=== PATIENT | female | born 1995 | race African-American/Black ===

== ENCOUNTER 2018-04-29 14:39 | Emergency (ER) | payer OTHER, SELFPAY ==
[2018-04-29] MEDS ORDERED: Bacitracin Zinc 1 Packet ONE (16:06)
[2018-04-29] MEDS ORDERED: Ibuprofen 200 MG TAB ONE (16:06)
== END 2018-04-29 16:07 | disposition home or self-care (01) ==
LOC: ERS 14:39
DX: S50.11XA Contusion of right forearm, initial encounter (principal); S90.812A Abrasion, left foot, initial encounter; I10 Essential (primary) hypertension; F32.9 Major depressive disorder, single episode, unspecified; Y04.1XXA Assault by human bite, initial encounter
CPT/HCPCS: 99283

== ENCOUNTER 2019-05-21 16:17 | Emergency (ER) | payer MEDICAID, SELFPAY ==
[2019-05-21 17:39] LABS: #Basophils 0.1 thou/uL (0.0-0.2); #Eosinphils 0.1 thou/uL (0.0-0.7); #Lymphocytes 2.9 thou/uL (1.20-3.40); #Monocytes 0.9 thou/uL (0.11-0.59); #Neutrophils 5.8 thou/uL (1.40-6.50); %Basophils 0.5 % (0.0-1.0); %Eosinophils 0.6 % (0.0-10.0); %Lymphocytes 29.9 % (21.0-51.0); %Monocytes 8.9 % (0.0-10.0); %Neutrophils 60.1 % (42.0-75.0); Hemoglobin 12.4 g/dL (12.0-16.0); Mean Corpuscular HGB CONC 33.4 g/dL (32.0-36.0); Mean Corpuscular Hemoglobin 29.5 pg (27.0-31.0); Mean Corpuscular Volume 88.4 fL (78.0-98.0); Mean Platelet Volume 7.7 fL (7.4-10.4); Platelet Count 273 thou/uL (130-400); RBC Distribution Width 12.1 % (11.5-14.5); Red Blood Cell (RBC) Count 4.21 mill/uL (4.20-5.40); White Blood Cell (WBC) Count 9.7 thou/uL (4.8-10.8)
[2019-05-21 18:00] LABS: BHCG - Serum POSITIVE (NEGATIVE); Pregs Control Background? CLEAR/WHITE (CLR/WHITE); Pregs Control Bar Appear? YES (CONTROL BAR)
[2019-05-21 18:01] LABS: ALT (SGPT) 12 U/L (8-55); AST (SGOT) 16 U/L (5-34); Albumin 4.3 g/dL (3.5-5.0); Alkaline Phosphatase 61 U/L (40-110); Anion Gap 10 mmol/L (10-20); BUN (Urea Nitrogen) 9 mg/dL (7.0-18.7); Bilirubin, Total 0.5 mg/dL (0.2-1.2); Calc. Creatinine Clearance 0 mL/min (70-130); Calcium 9.2 mg/dL (7.8-10.44); Carbon Dioxide 25 mmol/L (22-29); Chloride 105 mmol/L (98-107); Estimated GFR-MDRD Greater than 90; Globulin 2.9 g/dL (2.4-3.5); Glucose 90 mg/dL (70-105); Potassium 3.9 mmol/L (3.5-5.1); Protein, Total 7.2 g/dL (6.0-8.3); Sodium 136 mmol/L (136-145)
[2019-05-21] MEDS ORDERED: Metoclopramide HCl 10 MG/2 ML VIAL ONE (18:13)
== END 2019-05-21 19:44 | disposition left against medical advice (07) ==
LOC: ERS 16:17
DX: O21.9 Vomiting of pregnancy, unspecified (principal); O10.911 Unspecified pre-existing hypertension complicating pregnancy, first trimester; O99.341 Other mental disorders complicating pregnancy, first trimester; F32.9 Major depressive disorder, single episode, unspecified; Z3A.01 Less than 8 weeks gestation of pregnancy
CPT/HCPCS: 80053; 84702; 84703; 85025; 96361; 96365; J2765

== ENCOUNTER 2019-05-24 03:58 | Emergency (ER) | payer MEDICAID, SELFPAY ==
[2019-05-24] MEDS ORDERED: Ondansetron PF 4 MG/2 ML Vial ONE (04:14)
[2019-05-24 04:59] LABS: ALT (SGPT) 26 U/L (8-55); AST (SGOT) 23 U/L (5-34); Albumin 4.8 g/dL (3.5-5.0); Alkaline Phosphatase 76 U/L (40-110); Anion Gap 17 mmol/L (10-20); BUN (Urea Nitrogen) 9 mg/dL (7.0-18.7); Bilirubin, Total 1.1 mg/dL (0.2-1.2); Calc. Creatinine Clearance 0 mL/min (70-130); Calcium 10.2 mg/dL (7.8-10.44); Carbon Dioxide 25 mmol/L (22-29); Chloride 100 mmol/L (98-107); Estimated GFR-MDRD Greater than 90; Globulin 3.6 g/dL (2.4-3.5); Glucose 77 mg/dL (70-105); Lipase 18 U/L (8-78); Protein, Total 8.4 g/dL (6.0-8.3); Sodium 139 mmol/L (136-145)
== END 2019-05-24 06:08 | disposition home or self-care (01) ==
LOC: ERS 03:58
DX: O21.9 Vomiting of pregnancy, unspecified (principal); I10 Essential (primary) hypertension; F32.9 Major depressive disorder, single episode, unspecified; Z3A.01 Less than 8 weeks gestation of pregnancy
CPT/HCPCS: 80053; 83690; 96361; 96374; J2405

== ENCOUNTER 2019-05-25 10:36 | Emergency (ER) | payer MEDICAID, SELFPAY ==
[2019-05-25] MEDS ORDERED: Ondansetron PF 4 MG/2 ML Vial ONE (11:12)
[2019-05-25 11:47] LABS: #Basophils 0.1 thou/uL (0.0-0.2); #Lymphocytes 1.6 thou/uL (1.20-3.40); #Monocytes 0.7 thou/uL (0.11-0.59); #Neutrophils 8.8 thou/uL (1.40-6.50); %Basophils 0.5 % (0.0-1.0); %Eosinophils 0.4 % (0.0-10.0); %Lymphocytes 14.2 % (21.0-51.0); %Monocytes 5.9 % (0.0-10.0); %Neutrophils 79.1 % (42.0-75.0); Hemoglobin 14.1 g/dL (12.0-16.0); Mean Corpuscular HGB CONC 33.2 g/dL (32.0-36.0); Mean Corpuscular Hemoglobin 29.5 pg (27.0-31.0); Mean Corpuscular Volume 88.8 fL (78.0-98.0); Mean Platelet Volume 8.6 fL (7.4-10.4); Platelet Count 286 thou/uL (130-400); Red Blood Cell (RBC) Count 4.79 mill/uL (4.20-5.40); White Blood Cell (WBC) Count 11.1 thou/uL (4.8-10.8)
[2019-05-25 12:07] LABS: ALT (SGPT) 38 U/L (8-55); AST (SGOT) 28 U/L (5-34); Albumin 4.8 g/dL (3.5-5.0); Alkaline Phosphatase 76 U/L (40-110); Anion Gap 21 mmol/L (10-20); BUN (Urea Nitrogen) Less than 4 mg/dL (7.0-18.7); Bilirubin, Total 1.2 mg/dL (0.2-1.2); CK (CPK) 95 U/L (29-168); Calc. Creatinine Clearance 0 mL/min (70-130); Calcium 9.8 mg/dL (7.8-10.44); Carbon Dioxide 19 mmol/L (22-29); Chloride 102 mmol/L (98-107); Estimated GFR-MDRD Greater than 90; Globulin 3.5 g/dL (2.4-3.5); Glucose 67 mg/dL (70-105); Lipase 11 U/L (8-78); Protein, Total 8.3 g/dL (6.0-8.3); Sodium 139 mmol/L (136-145)
[2019-05-25 12:14] LABS: Potassium 2.9 mmol/L (3.5-5.1)
--- NOTE | 2019-05-25 13:37 | ULT ---
PELVIC ULTRASOUND: Transabdominal and endovaginal ultrasound of pelvis performed. INDICATION: Pelvic pain. Assess for ectopic. FINDINGS: There is a viable intrauterine gestation identified. A gestational sac is identified. a yolk sac an d pole are identified. heart activity is recorded at 117 b.p.m. [place]-rump length indic ates a 6-week 2-day gestational age. There is a hypoechoic subchorionic focus which is consistent with a small subchorionic hemorrhage. A small amount of free fluid in the right adnexa. Ovaries are identified and appear unremarkable. C olor Doppler and spectral analysis demonstrates blood flow to both ovaries. IMPRESSION: 1. Viable intrauterine . [place]-rump length indicates a 6-week 2-day gestational age. 2. Evidence of a small subchorionic hemorrhage. Followup recommended. POS: MARIELA
[2019-05-25] MEDS ORDERED: Potassium Chloride 20 MEQ TAB ONE (13:49)
== END 2019-05-25 14:15 | disposition home or self-care (01) ==
LOC: ERS 10:36
DX: O21.1 Hyperemesis gravidarum with metabolic disturbance (principal); O99.341 Other mental disorders complicating pregnancy, first trimester; F32.9 Major depressive disorder, single episode, unspecified; O10.911 Unspecified pre-existing hypertension complicating pregnancy, first trimester; Z3A.01 Less than 8 weeks gestation of pregnancy
CPT/HCPCS: 76856; 80053; 82550; 83690; 84702; 85025; 96361; 96374; J2405

== ENCOUNTER 2019-06-04 12:06 | Emergency (ER) | payer MEDICAID ==
[2019-06-04] MEDS ORDERED: Ondansetron PF 4 MG/2 ML Vial ONE (13:02)
[2019-06-04 13:17] LABS: #Basophils 0.1 thou/uL (0.0-0.2); #Lymphocytes 2.1 thou/uL (1.20-3.40); #Monocytes 0.7 thou/uL (0.11-0.59); #Neutrophils 7.3 thou/uL (1.40-6.50); %Basophils 0.8 % (0.0-1.0); %Eosinophils 0.4 % (0.0-10.0); %Lymphocytes 20.6 % (21.0-51.0); %Monocytes 7.2 % (0.0-10.0); Mean Corpuscular HGB CONC 33.2 g/dL (32.0-36.0); Mean Corpuscular Hemoglobin 29.1 pg (27.0-31.0); Mean Corpuscular Volume 87.8 fL (78.0-98.0); Mean Platelet Volume 7.8 fL (7.4-10.4); Platelet Count 315 thou/uL (130-400); RBC Distribution Width 12.2 % (11.5-14.5); Red Blood Cell (RBC) Count 4.82 mill/uL (4.20-5.40); White Blood Cell (WBC) Count 10.3 thou/uL (4.8-10.8)
[2019-06-04 13:37] LABS: ALT (SGPT) 17 U/L (8-55); AST (SGOT) 18 U/L (5-34); Albumin 4.3 g/dL (3.5-5.0); Alkaline Phosphatase 64 U/L (40-110); Anion Gap 14 mmol/L (10-20); BUN (Urea Nitrogen) 13 mg/dL (7.0-18.7); Bilirubin, Total 0.7 mg/dL (0.2-1.2); Calc. Creatinine Clearance 0 mL/min (70-130); Calcium 9.9 mg/dL (7.8-10.44); Carbon Dioxide 23 mmol/L (22-29); Chloride 102 mmol/L (98-107); Estimated GFR-MDRD Greater than 90; Globulin 3.6 g/dL (2.4-3.5); Glucose 71 mg/dL (70-105); Lipase 17 U/L (8-78); Potassium 3.9 mmol/L (3.5-5.1); Protein, Total 7.9 g/dL (6.0-8.3); Sodium 135 mmol/L (136-145)
== END 2019-06-04 14:10 | disposition home or self-care (01) ==
LOC: ERS 12:06
DX: O21.0 Mild hyperemesis gravidarum (principal); Z3A.01 Less than 8 weeks gestation of pregnancy
CPT/HCPCS: 80053; 83690; 85025; 96361; 96374; J2405

== ENCOUNTER 2019-06-07 11:05 | Observation (INO) | payer MEDICAID, OTHER ==
[2019-06-07] MEDS ORDERED: Ondansetron PF 4 MG/2 ML Vial ONE ×2 (12:23→12:26)
[2019-06-07 12:30] LABS: #Lymphocytes 1.4 thou/uL (1.20-3.40); #Monocytes 0.7 thou/uL (0.11-0.59); #Neutrophils 8.9 thou/uL (1.40-6.50); %Basophils 0.2 % (0.0-1.0); %Eosinophils 0.3 % (0.0-10.0); %Lymphocytes 12.9 % (21.0-51.0); %Monocytes 6.1 % (0.0-10.0); %Neutrophils 80.4 % (42.0-75.0); Hemoglobin 12.8 g/dL (12.0-16.0); Mean Corpuscular HGB CONC 33.9 g/dL (32.0-36.0); Mean Corpuscular Hemoglobin 29.9 pg (27.0-31.0); Mean Corpuscular Volume 88.2 fL (78.0-98.0); Mean Platelet Volume 7.5 fL (7.4-10.4); Platelet Count 315 thou/uL (130-400); RBC Distribution Width 11.9 % (11.5-14.5); Red Blood Cell (RBC) Count 4.27 mill/uL (4.20-5.40); White Blood Cell (WBC) Count 11.1 thou/uL (4.8-10.8)
[2019-06-07 13:36] LABS: ALT (SGPT) 22 U/L (8-55); AST (SGOT) 19 U/L (5-34); Albumin 3.7 g/dL (3.5-5.0); Alkaline Phosphatase 55 U/L (40-110); Anion Gap 12 mmol/L (10-20); BUN (Urea Nitrogen) 9 mg/dL (7.0-18.7); Bilirubin, Total 0.6 mg/dL (0.2-1.2); Calc. Creatinine Clearance 0 mL/min (70-130); Calcium 8.6 mg/dL (7.8-10.44); Carbon Dioxide 22 mmol/L (22-29); Chloride 106 mmol/L (98-107); Estimated GFR-MDRD Greater than 90; Globulin 2.8 g/dL (2.4-3.5); Glucose 72 mg/dL (70-105); Protein, Total 6.5 g/dL (6.0-8.3); Sodium 136 mmol/L (136-145)
[2019-06-07] MEDS ORDERED: Magnesium Citrate 300 ML BOT PO SCH (15:30)
[2019-06-07] MEDS ORDERED: Lactated Ringer's 1,000 ML IV SCH (15:30)
[2019-06-07] MEDS ORDERED: Sodium Chloride 0.9% 10 ML ONE (15:55)
--- NOTE | 2019-06-07 17:35 | HP ---
PRIMARY MERCERIZER MACHINE OPERATOR: Shaheed Cope MD CHIEF COMPLAINT: Nausea and vomiting. HISTORY OF PRESENT ILLNESS: The patient is a 23-year-old with an intrauterine at approximately 7 weeks' gestation, who has been having persistent nausea and vomiting for the last several weeks. She has had four ER presentations in the last 2 weeks for uncontrolled nausea and vomiting. The patient has been seen by her primary OB, Dr. Cope, who has prescribed her at least two different antiemetics, most recently Zofran. The patient reports that the Zofran is able to help her some with the nausea, but she is unable to keep any liquids down. The patient also reports that she has been having constipation with the last bowel movement about a week ago. The patient denies fever. She denies fall. She denies headache, chest pain, shortness of breath, diarrhea, any hip problems, knee problems, muscle weakness, any new rashes, any bleeding, leaking fluid, urinary urgency or frequency. PAST MEDICAL HISTORY: Negative. PAST SURGICAL HISTORY: She has had 2 prior C-sections. OBSTETRIC HISTORY: She has had one delivery at 26 to 29 weeks' gestation, delivered by for breech. SOCIAL HISTORY: Denies drug, alcohol, or tobacco use. ALLERGIES: NO KNOWN DRUG ALLERGIES. MEDICATIONS: Zofran. PHYSICAL EXAMINATION: VITAL SIGNS: Blood pressure 137/83, pulse of 106, respiratory rate 19, temperature 99.3, saturating 97% on room air. GENERAL: She appears to be in no acute distress. She is alert, oriented, cooperative, and pleasant to interact with. HEENT: Head is normocephalic and atraumatic. LUNGS: Clear to auscultation bilaterally. HEART: Regular rate and rhythm. ABDOMEN: Soft and nontender. EXTREMITIES: Nontender and nonedematous. LABORATORY DATA: CBC; white count is 11.1, hemoglobin 12.8, hematocrit 37.6, platelets of 315,000. Sodium 136, potassium 4.0, chloride 106, BUN 9, creatinine 0.6. AST of 19, ALT of 22. ASSESSMENT AND PLAN: The patient is a 23-year-old female with an intrauterine at approximately 7 weeks with uncontrolled nausea and vomiting. I have placed her on scheduled Zofran 8 mg IV twice a day, on 12.5 mg of Benadryl every 4 hours, and vitamin B6 25 mg 3 times a day. I have also ordered magnesium citrate when tolerated and MiraLAX. The patient has a desire to eat, so we will be giving her a trial of diet. Once the patient is able to tolerate intake on IV antiemetics, we will switch to p.o. and if tolerating that, she will go home on that schedule. Job ID: [id number]
[2019-06-07] MEDS: diphenhydrAMINE 50 MG/ML VIAL IVP SCH ×2 (18:04→20:47)
[2019-06-07 18:36] VITALS: BMI 24.0
[2019-06-07] MEDS: Lactated Ringer's 1,000 ML IV SCH (20:44)
[2019-06-07] MEDS: pyridOXINE 50 MG (B6) TAB PO SCH (20:44)
[2019-06-07] MEDS ORDERED: Ondansetron HCl/PF 8 MG in Sodium Chloride 0.9% 50 ML IVPB SCH (21:00)
[2019-06-08] MEDS: Lactated Ringer's 1,000 ML IV SCH ×3 (03:53→12:46)
[2019-06-08] MEDS: diphenhydrAMINE 50 MG/ML VIAL IVP SCH ×2 (03:53→05:48)
[2019-06-08] MEDS ORDERED: Ondansetron ODT 8 MG TAB SL PRN (07:50)
[2019-06-08] MEDS ORDERED: Metoclopramide HCl 10 MG TAB PO SCH (08:00)
[2019-06-08] MEDS: pyridOXINE 50 MG (B6) TAB PO SCH ×2 (08:21→15:30)
--- NOTE | 2019-06-08 08:21 | PRG ---
DATE OF SERVICE: 06/08/2019 SUBJECTIVE: The patient is a 23-year-old female with an intrauterine at approximately 7 weeks' gestation, who was admitted for unrelenting nausea and vomiting in . The patient has been on scheduled antiemetics for the last approximately 24 hours and is doing well. She has been on scheduled Zofran, Benadryl, and vitamin B6. She has been able to eat and has not had any episodes of nausea or vomiting. She also had constipation for a week, has now been resolved with magnesium citrate and is now on MiraLAX daily. OBJECTIVE: VITAL SIGNS: This morning, blood pressure 110/63, temperature 98.1, pulse of 97, and respiratory rate of 16. GENERAL: She appears to be in no acute distress. She is alert, oriented, cooperative, and pleasant to interact with. ASSESSMENT AND PLAN: This is hospital day #2 for nausea and vomiting in . We are switching all of her medications to oral. The patient has had extreme sedation with the IV Benadryl. I will be switching her to Zofran 8 mg twice a day. Scheduled Reglan 10 mg 3 times a day before meals and vitamin B6. If she tolerates her diet well today with oral antiemetics, we will consider discharge this evening. Job ID: [id number]
[2019-06-08] MEDS ORDERED: FLU VACC QS2019-20(6MOS UP)/PF 60 MCG/0.5 ML SYRINGE IM ONE (09:00)
[2019-06-08] MEDS ORDERED: Polyethylene Glycol 3350 17 GM Packet PO SCH (09:00)
[2019-06-08] MEDS ORDERED: Ondansetron ODT 8 MG TAB SL SCH (09:00)
[2019-06-08] MEDS: Metoclopramide HCl 10 MG TAB PO SCH ×2 (11:56→17:08)
[2019-06-08 12:07] VITALS: BP 118/68; TEMP 97.8
--- NOTE | 2019-06-08 15:46 | PDOC.BPN ---
<Yamile Alcocer - Last Filed: 06/08/19 15:45> - Brief Progress Note Pt reports N/V has resolved with PO medications. She is tolerating PO and ate a full lunch. She reports she overall feels better and is ready to go home. Will d/c home today. Encouraged pt to keep appt with Dr. Cope on 06/12. Continue antiemetics at home and gave miralax prn constipation. <Rex Rodriguez - Last Filed: 06/08/19 15:50> - Brief Progress Note Faculty note: Agree. Review of past admists from 05/2019 showed pos VIABLE IUP first trimester
--- NOTE | 2019-06-08 15:46 | PDOC.EVN ---
Event Note - Event Note Event Note: OBGYN Faculty Discharge Note S/P IVF hydration. @1545 DX Final: resolved N/V of in first trimester Admit was: 06/07/19 [facility] Date: 06/08/19 Principal DX: N/V in first trimester Procedure: IVF hydration Hospital course: Patient feels better on orals. Kinza po today OK fort DC to home with Irena, f/u with Dr Cope. Agree with Dr Alcocer, follow up in one week OK for oral meds as outpatient
--- NOTE | 2019-06-08 16:35 | DIS ---
DATE OF ADMISSION: 06/07/2019 DATE OF DISCHARGE: 06/08/2019 PRINCIPAL DIAGNOSES: 1. Nausea and vomiting at 7 weeks. 2. History of previous section. PRINCIPLE PROCEDURE: IV fluid hydration. HOSPITAL COURSE: In brief, the patient was admitted by the on-call team yesterday, Dr. Owen, for nausea and vomiting. She was able to tolerate regular diet on an oral regimen, and on the afternoon of evaluation on June 08, 2019, she had no further nausea and vomiting. It is important to note that she had an ultrasound performed last month that did confirm an intrauterine gestation in the first trimester with adequate heart tones. The decision was made to send the patient home at approximately 1600 hours today on June 08, 2019, and she will follow up with Dr. Cope, who is her provider, in about 1 week. She will go home with oral antiemetics (Zofran). She also had some initial constipation on arrival, but this resolved after a laxative was administered and the patient felt better. Job ID: [id number] MTDD
== END 2019-06-08 17:19 | disposition home or self-care (01) ==
LOC: ERS 11:05 → 3SE 15:04
PROVIDERS: ADMIT Obstetrics & Gynecology; ATTEND Obstetrics & Gynecology
DX: O21.9 Vomiting of pregnancy, unspecified (principal); O99.611 Diseases of the digestive system complicating pregnancy, first trimester; K59.00 Constipation, unspecified; Z3A.01 Less than 8 weeks gestation of pregnancy
CPT/HCPCS: 36415; 80053; 85025; 96361; 96365; 96374; 96375; 96376; G0378; J1200; J2405

== ENCOUNTER 2019-07-05 17:11 | Emergency (ER) | payer MEDICAID, OTHER ==
[2019-07-05 17:40] LABS: Bacteria/HPF None Seen HPF (None Seen); Bilirubin Negative (Negative); Blood, Urine Negative (Negative); Clarity Clear (Clear); Glucose, Urine (Dipstick) Normal (Negative); Leukocyte 500 Leu/uL (Negative); Nitrite Negative (Negative); Protein, Urine (Dipstick) 20 mg/dL (Neg-Trace); RBC/HPF 0-3 HPF (0-3); Urobilinogen 3 mg/dL (Less than 2); WBC/HPF 0-3 HPF (0-3)
[2019-07-05 17:49] LABS: #Basophils 0.1 thou/uL (0.0-0.2); #Eosinphils 0.1 thou/uL (0.0-0.7); #Lymphocytes 2.5 thou/uL (1.20-3.40); #Monocytes 0.8 thou/uL (0.11-0.59); #Neutrophils 6.2 thou/uL (1.40-6.50); %Basophils 0.6 % (0.0-1.0); %Eosinophils 0.7 % (0.0-10.0); %Lymphocytes 25.7 % (21.0-51.0); %Monocytes 8.4 % (0.0-10.0); %Neutrophils 64.6 % (42.0-75.0); Mean Corpuscular HGB CONC 32.8 g/dL (32.0-36.0); Mean Corpuscular Hemoglobin 29.3 pg (27.0-31.0); Mean Corpuscular Volume 89.1 fL (78.0-98.0); Mean Platelet Volume 7.3 fL (7.4-10.4); Platelet Count 305 thou/uL (130-400); RBC Distribution Width 12.4 % (11.5-14.5); Red Blood Cell (RBC) Count 3.75 mill/uL (4.20-5.40); White Blood Cell (WBC) Count 9.7 thou/uL (4.8-10.8)
[2019-07-05 18:11] LABS: ALT (SGPT) 18 U/L (8-55); AST (SGOT) 16 U/L (5-34); Albumin 3.7 g/dL (3.5-5.0); Alkaline Phosphatase 50 U/L (40-110); Anion Gap 8 mmol/L (10-20); BUN (Urea Nitrogen) 10 mg/dL (7.0-18.7); Bilirubin, Total 0.3 mg/dL (0.2-1.2); Calc. Creatinine Clearance 0 mL/min (70-130); Calcium 9.1 mg/dL (7.8-10.44); Carbon Dioxide 26 mmol/L (22-29); Chloride 107 mmol/L (98-107); Estimated GFR-MDRD Greater than 90; Globulin 2.9 g/dL (2.4-3.5); Glucose 92 mg/dL (70-105); Potassium 3.5 mmol/L (3.5-5.1); Protein, Total 6.6 g/dL (6.0-8.3); Sodium 137 mmol/L (136-145)
[2019-07-05] MEDS ORDERED: Acetaminophen 500 MG TAB ONE (18:12)
[2019-07-05 18:18] LABS: BHCG - Serum POSITIVE (NEGATIVE); Pregs Control Background? CLEAR/WHITE (CLR/WHITE); Pregs Control Bar Appear? YES (CONTROL BAR)
--- NOTE | 2019-07-05 19:11 | ULT ---
Ultrasound early obstetrical: DATE: 07/05/2019 HISTORY: 23-year-old female status post fall. "Reason for exam: Placenta dates" FINDINGS: Intrauterine gestational sac containing pole. The gestational sac is positioned in the uterine body near the cervix rather than at the fundus. [place]-rump length: 5.6 cm: 12 W1 D. heart rate: 157 BPM. Placenta appears to be posterior. Posterior to the placenta at the uterine fundus, there is a broad region of the uterus with increased blood flow. Etiology and significance of this is uncertain. No free fluid in the cul-de-sac. Bilateral ovaries are normal. IMPRESSION: 1. Live very early second trimester intrauterine gestation estimated to be 12 weeks 1 day gestational age. 2. A moderately large region of hyperemia in the uterine fundus. It may be displacing the gestational sac inferiorly towards the cervix. Etiology is uncertain. Possibilities include Isaac Galloway contraction, placenta accreta, and less likely placental abruption. 3. Recommend follow-up.
[2019-07-05] MEDS ORDERED: Promethazine 25 MG TAB ONE (21:01)
== END 2019-07-05 20:30 | disposition home or self-care (01) ==
LOC: ERS 17:11
DX: O20.8 Other hemorrhage in early pregnancy (principal); Z3A.13 13 weeks gestation of pregnancy
CPT/HCPCS: 36415; 76856; 80053; 81003; 81015; 84703; 85025; 86900; 86901; 93976; Q0169

== ENCOUNTER 2019-08-02 17:51 | Emergency (ER) | payer OTHER ==
[2019-08-02 18:13] LABS: #Eosinphils 0.1 thou/uL (0.0-0.7); #Lymphocytes 0.6 thou/uL (1.20-3.40); #Monocytes 0.4 thou/uL (0.11-0.59); #Neutrophils 11.6 thou/uL (1.40-6.50); %Basophils 0.1 % (0.0-1.0); %Eosinophils 0.7 % (0.0-10.0); %Lymphocytes 4.4 % (21.0-51.0); %Monocytes 3.2 % (0.0-10.0); %Neutrophils 91.6 % (42.0-75.0); Hemoglobin 12.2 g/dL (12.0-16.0); Mean Corpuscular HGB CONC 33.5 g/dL (32.0-36.0); Mean Corpuscular Hemoglobin 29.3 pg (27.0-31.0); Mean Corpuscular Volume 87.7 fL (78.0-98.0); Mean Platelet Volume 7.2 fL (7.4-10.4); Platelet Count 289 thou/uL (130-400); RBC Distribution Width 12.3 % (11.5-14.5); Red Blood Cell (RBC) Count 4.17 mill/uL (4.20-5.40); White Blood Cell (WBC) Count 12.6 thou/uL (4.8-10.8)
[2019-08-02 18:37] LABS: ALT (SGPT) 15 U/L (8-55); AST (SGOT) 15 U/L (5-34); Albumin 3.8 g/dL (3.5-5.0); Alkaline Phosphatase 74 U/L (40-110); Anion Gap 14 mmol/L (10-20); BUN (Urea Nitrogen) 9 mg/dL (7.0-18.7); Bilirubin, Total 0.5 mg/dL (0.2-1.2); Calc. Creatinine Clearance 0 mL/min (70-130); Carbon Dioxide 21 mmol/L (22-29); Chloride 104 mmol/L (98-107); Estimated GFR-MDRD Greater than 90; Globulin 3.5 g/dL (2.4-3.5); Glucose 74 mg/dL (70-105); Potassium 3.6 mmol/L (3.5-5.1); Protein, Total 7.3 g/dL (6.0-8.3); Sodium 135 mmol/L (136-145)
[2019-08-02] MEDS ORDERED: Ondansetron PF 4 MG/2 ML Vial ONE ×2 (18:48→19:42)
[2019-08-02] MEDS ORDERED: Acetaminophen 500 MG TAB ONE (18:48)
--- NOTE | 2019-08-02 19:13 | ULT ---
Obstetrical ultrasound: 08/02/2019 COMPARISON: 07/05/2019 HISTORY: Abdominal pain, question contractions TECHNIQUE: Multiplanar grayscale sonographic imaging of the gravid uterus obtained. FINDINGS: Cervical length is approximately 3.1 cm. Single intrauterine gestation present demonstrating a heart rate of 1 52 bpm. There is a focal area of thickening of the placenta and posterior to the placenta there is an area of masslike increased vascularity which is unchanged when compared to the prior examination. This causes a abnormal persistent convex margin of the placenta. Significance is uncertain. No evidence fo r a retroplacental hematoma. No evidence for placental previa or abruption. anatomy is not assessed on this examination. position is breech. Amniotic fluid volume is qualitatively normal. biometry: Biparietal diameter 3.2 cm 15 weeks 6 days Head circumference 12.4 cm 16 weeks 2 days Abdominal circumference 10.6 cm 16 weeks 3 days Femur length 2.1 cm 16 weeks 1 day Average age based on ultrasound is 16 weeks 1 day. Estimated date of delivery is 01/16/2020 Estimated weight is 152 g +/- 22 g. IMPRESSION: Single live intrauterine gestation as detailed above. Incidental note is made of a focal area of placental thickening with retroplacental increased blood flow and increased echogenicity. Significance is uncertain. This is a stable finding. This will be better assessed on routine anatomic survey recommended in approximately 8 weeks.
[2019-08-02 19:15] LABS: Bacteria/HPF None Seen HPF (None Seen); Bilirubin Negative (Negative); Blood, Urine Negative (Negative); Clarity Clear (Clear); Glucose, Urine (Dipstick) Normal (Negative); Leukocyte 25 Leu/uL (Negative); Mucous/LPF Rare LPF (<2+); Nitrite Negative (Negative); Protein, Urine (Dipstick) 20 mg/dL (Neg-Trace); WBC/HPF 0-3 HPF (0-3)
== END 2019-08-02 21:58 | disposition home or self-care (01) ==
LOC: ERS 17:51
DX: O21.9 Vomiting of pregnancy, unspecified (principal); O99.282 Endocrine, nutritional and metabolic diseases complicating pregnancy, second trimester; E86.0 Dehydration; Z3A.16 16 weeks gestation of pregnancy
CPT/HCPCS: 36415; 76815; 80053; 81003; 81015; 84702; 85025; 96374; 96376; J2405

== ENCOUNTER 2019-09-05 14:38 | Outpatient (CLI) | payer OTHER ==
--- NOTE | 2019-09-05 16:37 | ULT ---
COMPLETE OB ULTRASOUND: 09/05/19 HISTORY: Anatomy. COMPARISON: 08/02/19. FINDINGS: Single viable intrauterine fetus in variable presentation. The placenta is posterior. heart rat e 146 beats per minute. Posterior low lying placenta without overt placenta previa. Amniotic fluid is within normal limits. Cervix region is somewhat poorly defined. ANATOMY: Visualized brain, four chamber heart, three vessel cord, stomach, bladder, kidneys, spine and e xtremity regions are unremarkable. BIOMETRY: BPD 4.9 cm - - 20 weeks, 5 days Head circumference 18.0 cm - - 20 weeks, 4 days Abdominal circumference 15.6 cm - - 20 weeks, 6 days Femur length 3.5 cm - - 21 weeks, 0 days IMPRESSION: Single viable intrauterine fetus, 20 weeks, 6 days. JUAN FRANCISCO 01/13/2020. Estimated weight 358 grams. POS: MARIELA
== END 2019-09-05 14:39 | disposition home or self-care (01) ==
LOC: BICULT 14:38
PROVIDERS: ATTEND Family Medicine
DX: O09.212 Supervision of pregnancy with history of pre-term labor, second trimester (principal); Z3A.20 20 weeks gestation of pregnancy
CPT/HCPCS: 76805

== ENCOUNTER 2019-10-02 06:18 | Day surgery (SDC) | payer OTHER ==
[2019-10-02 07:17] VITALS: BP 127/70; TEMP 98.4; BMI 31.4
[2019-10-02] MEDS ORDERED: hydrALAZINE 20 MG/ML VIAL SLOW IVP PRN (07:38)
[2019-10-02] MEDS ORDERED: Lactated Ringer's 1,000 ML IV SCH ×2 (07:45)
[2019-10-02] MEDS ORDERED: Promethazine HCl 25 MG/ML VIAL IM PRN (07:47)
--- NOTE | 2019-10-02 08:26 | PRG ---
DATE OF SERVICE: 10/02/2019 PRIMARY OBSTETRICS DOCTOR: Dr. Shaheed Cope. CHIEF COMPLAINT: Nausea, vomiting x2 days and sharp abdominal pains. HISTORY OF PRESENT ILLNESS: The patient is a 23-year-old G3, P2 female with an intrauterine at 25 weeks and 2 days, presenting to Labor and Delivery with chronic nausea and vomiting with this that has been refractory to Zofran in the last couple of days. She says she has not been able to keep any liquids down. The last time she peed was yesterday evening. The patient also reports that she has been having some sharp lower abdominal pains that are worse with activity and movement and much improved with rest. She denies any rhythmic abdominal pains with hardening of the belly. She denies any recent illness, fever, cough. The patient does report intermittent headaches throughout the . Denies any current headaches. Denies chest pain, shortness of breath. Reports intermittent constipation. Denies diarrhea. Denies any new rashes, hip problems, knee problems, muscle weakness. Reports some vaginal discharge that she has been noticing when she goes to the bathroom with an odor. Denies any leakage of fluid or vaginal bleeding. Denies any urinary urgency or frequency. PAST MEDICAL HISTORY: Negative. PAST SURGICAL HISTORY: Two prior C-sections. ALLERGIES: NO KNOWN DRUG ALLERGIES. MEDICATIONS: vitamins and Zofran. SOCIAL HISTORY: Denies drug, alcohol, or tobacco use. OBSTETRICS LABS: Unavailable at time of dictation. REVIEW OF SYSTEMS: Per HPI. PHYSICAL EXAMINATION: VITAL SIGNS: Blood pressure 127/70, heart rate 76, respiratory rate 18. GENERAL: She appears to be in no acute distress. She is alert and oriented, cooperative, pleasant to interact with. HEAD: Normocephalic, atraumatic. LUNGS: Clear to auscultation bilaterally. HEART: Has regular rate and rhythm. ABDOMEN: Gravid, soft, nontender in her epigastric and upper abdominal region and her fundus. She does have tenderness in the lower pelvis with deviation of the uterus to the left and right consistent with the pains that she has come in with. EXTREMITIES: Nontender, nonedematous. : Vulva is without mass, lesions, or erythema. Vagina is moist with a significant amount of white discharge, more so than expected for physiologic changes. The cervix is visibly closed. fibronectin and VP3 have both been collected at that time. Cervix on digital exam is closed, thick, and high with no presenting palpable part. DIAGNOSTIC DATA: heart tracing shows the fetus with a baseline in the 140s with moderate long-term variability, appropriate for 25 week gestation. Tocometer not showing any contraction pattern. LABORATORY DATA: BMP has been ordered as well as VP3 and fibronectin all pending. ASSESSMENT AND PLAN: The patient is a 23-year-old female with a chronic history of nausea and vomiting refractory to Zofran in the last couple of days. She is getting IV with IV fluid resuscitation, BMP to check electrolytes and these abdominal pains are consistent with musculoskeletal pains of . She has no evidence of labor. However, we have fibronectin. This has been sent and is pending. Dr. Rodriguez oncoming physician. She is to continue with management. DISPOSITION: The patient has fetus with reassuring heart tracing for gestational age. Also urinalysis when she is able to urinate will be sent. Job ID: [id number] MTDD
[2019-10-02 08:29] LABS: Anion Gap 12 mmol/L (10-20); BUN (Urea Nitrogen) 9 mg/dL (7.0-18.7); Calc. Creatinine Clearance 155 mL/min (70-130); Calcium 8.7 mg/dL (7.8-10.44); Carbon Dioxide 22 mmol/L (22-29); Chloride 107 mmol/L (98-107); Estimated GFR-MDRD Greater than 90; Glucose 82 mg/dL (70-105); Potassium 3.6 mmol/L (3.5-5.1); Sodium 137 mmol/L (136-145)
[2019-10-02 08:31] LABS: FFN Internal QC Analyzer PASS (PASS); FFN Internal QC Cassette PASS (PASS); Fetal Fibronectin Negative (Negative)
--- NOTE | 2019-10-02 08:34 | PDOC.EVN ---
Event Note - Event Note Event Note: At bedside now with Davian Wu (M3). Plan reviewed. Labs pending. I changed the BMP to CMP. No acute distress.
--- NOTE | 2019-10-02 08:49 | PDOC.EVN ---
Event Note - Event Note Event Note: Lab check: So far, BMP and FFN are negative
--- NOTE | 2019-10-02 09:15 | PDOC.EVN ---
Event Note - Event Note Event Note: BV and yeast on VP3 LFTs and UA pending I have ordered flagyl 500mg po BID x 7 days in the pharmacy for her. As no itching c/o, will not RX yeast at this time.
[2019-10-02 09:21] LABS: ALT (SGPT) 20 U/L (8-55); AST (SGOT) 18 U/L (5-34); Albumin 3.4 g/dL (3.5-5.0); Alkaline Phosphatase 70 U/L (40-110); Bilirubin, Direct 0.1 mg/dL (0.1-0.3); Bilirubin, Total 0.2 mg/dL (0.2-1.2); Protein, Total 6.6 g/dL (6.0-8.3)
[2019-10-02 09:39] LABS: Bacteria/HPF None Seen HPF (None Seen); Bilirubin Negative (Negative); Blood, Urine Negative (Negative); Clarity Clear (Clear); Glucose, Urine (Dipstick) Normal (Negative); Leukocyte Negative Leu/uL (Negative); Nitrite Negative (Negative); Protein, Urine (Dipstick) Negative (Neg-Trace); RBC/HPF 0-3 HPF (0-3); Squamous Epithelial 0-3 HPF (0-3); Urobilinogen Normal mg/dL (Less than 2); WBC/HPF 0-3 HPF (0-3)
--- NOTE | 2019-10-02 09:54 | PDOC.EVN ---
Event Note - Event Note Event Note: All labs checked and OK. OK for outpatient care. Flagyl for BV
== END 2019-10-02 09:55 | disposition home or self-care (01) ==
LOC: L&D/OP 06:18
PROVIDERS: ATTEND Family Medicine
DX: O99.89 Other specified diseases and conditions complicating pregnancy, childbirth and the puerperium (principal); R10.30 Lower abdominal pain, unspecified; O21.2 Late vomiting of pregnancy; O34.219 Maternal care for unspecified type scar from previous cesarean delivery; O98.812 Other maternal infectious and parasitic diseases complicating pregnancy, second trimester; B37.3 Candidiasis of vulva and vagina; O23.592 Infection of other part of genital tract in pregnancy, second trimester; B96.89 Other specified bacterial agents as the cause of diseases classified elsewhere; Z3A.25 25 weeks gestation of pregnancy; Z79.899 Other long term (current) drug therapy
CPT/HCPCS: 36415; 80048; 80076; 81001; 82731; 87480; 87510; 87660; 96360; 96361; 96372; 99285; J2550

== ENCOUNTER 2019-10-09 12:29 | Emergency (ER) | payer OTHER | END 2019-10-09 12:42 | disposition left against medical advice (07) | LOC: ERS 12:29 | DX: Z53.21 Procedure and treatment not carried out due to patient leaving prior to being seen by health care provider (principal) ==

== ENCOUNTER 2019-10-17 10:55 | Outpatient (CLI) | payer OTHER ==
--- NOTE | 2019-10-17 11:35 | ULT ---
ULTRASOUND OBSTETRICAL COMPLETE: DATE: 10/17/2019 HISTORY: 24-year-old female ICD-10: "O09.93, high-risk , third trimester" Follow-up low lying placenta FINDINGS: number: silver lie: Vertex Maternal cervix: 4.5 cm. Closed. Placenta: Posterior. No placenta previa. Distance to internal os at least 6.5 cm. Amniotic fluid volume: ASIA = 15cm heart rate: 146 bpm The following anatomy is visualized, with no evidence of anomalies: Head, four-chamber heart, cord insertion, and three-vessel cord. The rest of the anatomy was not evaluated today. biometry: Biparietal diameter (BPD): 6.5 cm 26 w 3 d Head circumference (HC): 24.4 cm 26 w 4 d Abdominal circumference (AC): 21.9 cm 26 w 3 d Femur length (FL): 4.9 cm 26 w 3 d Average ultrasound age (AUA): 26 w 3 d Estimated date of delivery (JUAN FRANCISCO): 01/20/2020 Estimated weight (EFW): 931 g +/- 136 g IMPRESSION: 1) Live 3rd trimester intrauterine gestation. 2) Estimated gestational age of 26 weeks, 3 days 3) cephalic lie. 4) no placenta previa
== END 2019-10-17 10:56 | disposition home or self-care (01) ==
LOC: BICULT 10:55
PROVIDERS: ATTEND Family Medicine
DX: O09.92 Supervision of high risk pregnancy, unspecified, second trimester (principal); Z3A.26 26 weeks gestation of pregnancy
CPT/HCPCS: 76815

== ENCOUNTER 2019-11-08 05:49 | Day surgery (SDC) | payer OTHER ==
[2019-11-08] MEDS ORDERED: hydrALAZINE 20 MG/ML VIAL SLOW IVP PRN (06:47)
[2019-11-08] MEDS ORDERED: Promethazine HCl 25 MG/ML VIAL IM/IV PRN (06:49)
[2019-11-08] MEDS: Lactated Ringer's 1,000 ML IV SCH ×2 (07:00→07:39)
--- NOTE | 2019-11-08 07:14 | HP ---
TIME OF EVALUATION: 0650 hours. LOCATION: Labor and Delivery Triage in bed A. This is a patient of Dr. Cope. CHIEF COMPLAINT: Vomiting for about 2 days. HISTORY OF PRESENT ILLNESS: This is a 24-year-old, G3, P2 with an EDC of 01/13/2020 with an EGA currently of 30 weeks and 4 days with a complaint of possible contractions and nausea and vomiting for 2 days. She was seen in September in Labor and Delivery for similar complaints. She states that she has good movement and denies fever, cough, or leakage of fluid. She has no vaginal bleeding. She has not had recent intercourse in 48 hours. REVIEW OF SYSTEMS: Complete review of systems was checked and is otherwise negative unless specified in the HPI. OB HISTORY: Significant for 2 previous C-sections. Her 1st delivery was at 27 weeks and the 2nd was at term by repeat . ALLERGIES: NONE. MEDICATIONS: Include Zofran at home and vitamins. SOCIAL HISTORY: Noncontributory, per patient report. PHYSICAL EXAMINATION: GENERAL: She is in no acute distress. VITAL SIGNS: Show a blood pressure of 128/77, pulse of 87, temperature of 98.7, respirations are 16 and unlabored. ABDOMEN: Soft and nontender. There is no gross evidence of vaginal bleeding or gross evidence of leakage of fluid. CERVICAL: Deferred in case an FFN is required. assessment, heart tones are reactive for gestational age without pathological decelerations. There are contractions that are low amplitude on tocodynamometer in about every 5 minutes or so. ASSESSMENT: This is a 24-year-old, G3, P2, at 30 weeks and 4 days with nausea and vomiting for 2 days. She has complaint of contractions. PLAN: 1. I have ordered a stat cervical length ultrasound to assess for risk for . 2. I have ordered 1 L LR now. 3. I have ordered complete metabolic profile. 4. I have ordered 25 mg of Phenergan, slow IV push. 5. I have also ordered a right upper quadrant ultrasound. Job ID: [id number]
[2019-11-08 07:28] LABS: ALT (SGPT) 52 U/L (8-55); AST (SGOT) 32 U/L (5-34); Albumin 3.2 g/dL (3.5-5.0); Alkaline Phosphatase 107 U/L (40-110); Anion Gap 13 mmol/L (10-20); BUN (Urea Nitrogen) 5 mg/dL (7.0-18.7); Bilirubin, Total 0.4 mg/dL (0.2-1.2); Calc. Creatinine Clearance 0 mL/min (70-130); Calcium 8.7 mg/dL (7.8-10.44); Carbon Dioxide 22 mmol/L (22-29); Chloride 107 mmol/L (98-107); Estimated GFR-MDRD Greater than 90; Globulin 3.5 g/dL (2.4-3.5); Glucose 80 mg/dL (70-105); Potassium 3.6 mmol/L (3.5-5.1); Protein, Total 6.7 g/dL (6.0-8.3); Sodium 138 mmol/L (136-145)
--- NOTE | 2019-11-08 07:47 | PDOC.EVN ---
Event Note - Event Note Event Note: sONO cx LENGTH AT 4.2CM sMALL gb STONE NOTED WITHOUT BLOAKAGE
--- NOTE | 2019-11-08 07:48 | PDOC.EVN ---
Event Note - Event Note Event Note: LABS ARE WNL RUQ SONO WITH SMALL STONE; NORMAL CX LENGTH OK FOR OUTPATIENT CARE LOW FAT DIET
--- NOTE | 2019-11-08 07:50 | PDOC.EVN ---
Event Note - Event Note Event Note: HISTORY ADDENDUM PATIENT HAS PTALYSIM...DOENT SWALLOW HER SALIVA SHE STATES IT MAKES HER NASUEATED. I DISCUSSED THE CONDITION WITH HER. DENIES MARIJUANA USE NOW ALTHOUGH SHE DOES HAVE A PAST HX OF USE
[2019-11-08 07:55] VITALS: BMI 28.3
[2019-11-08] MEDS ORDERED: Lactated Ringer's 1,000 ML IV SCH (08:00)
--- NOTE | 2019-11-08 08:22 | ULT ---
Sonogram right upper quadrant HISTORY: Right upper quadrant pain. FINDINGS: Large echogenic stone is present within the dependent portion of the gallbladder lumen. Pat ient was reportedly tender over the gallbladder fossa at the time of the exam. There is no gallbladder wall thickening or pericholecystic fluid. Common duct is 0.2 cm. Liver unremarkable without focal mass or intrahepatic biliary dilatation. No free fluid. IMPRESSION : Cholelithiasis. Positive sonographic Ty sign is suggestive of acute cholecystitis. No other abnor mal findings evident.
--- NOTE | 2019-11-08 08:56 | ULT ---
Obstetric sonogram limited HISTORY: Evaluate cervical length. FINDINGS: Transabdominal exam well demonstrates the uterine cervix. It is closed and 4.2 cm.
== END 2019-11-08 08:30 | disposition home health service (06) ==
LOC: L&D/OP 05:49
PROVIDERS: ATTEND Family Medicine
DX: O21.2 Late vomiting of pregnancy (principal); O34.219 Maternal care for unspecified type scar from previous cesarean delivery; Z3A.30 30 weeks gestation of pregnancy
CPT/HCPCS: 36415; 76705; 76857; 80053; 96360; 96361; 96372; 99283; J2550

== ENCOUNTER 2019-11-26 11:46 | Day surgery (SDC) | payer OTHER ==
[2019-11-26 12:47] VITALS: BMI 29.2
[2019-11-26] MEDS ORDERED: hydrALAZINE 20 MG/ML VIAL SLOW IVP PRN (13:25)
[2019-11-26 14:19] LABS: Bacteria/HPF None Seen HPF (None Seen); Bilirubin Negative (Negative); Blood, Urine Negative (Negative); Clarity Turbid (Clear); Glucose, Urine (Dipstick) Normal (Negative); Leukocyte 75 Leu/uL (Negative); Mucous/LPF 1+ LPF (<2+); Nitrite Negative (Negative); Protein, Urine (Dipstick) 20 mg/dL (Neg-Trace); RBC/HPF 0-3 HPF (0-3); Squamous Epithelial 0-3 HPF (0-3); Urobilinogen Normal mg/dL (Less than 2); WBC/HPF 0-3 HPF (0-3)
--- NOTE | 2019-11-26 16:58 | PRG ---
DATE OF SERVICE: 11/26/2019 PRIMARY OB: Dr. Shaheed Cope. CHIEF COMPLAINT: Headache, cough, nausea, vomiting, back pain, and discharge. HISTORY OF PRESENT ILLNESS: The patient is a 24-year-old, G3, P2 female with an intrauterine at 33 weeks and 1 day, presenting to Labor and Delivery with a 4- to 5-day history of cough, nausea and vomiting, headache, and back pain. The patient reports that in the last day or so, she has also been experiencing a discharge that she reports as being watery. She reports that she has felt hot at home, but has checked her temperature and denies any fever. The patient reports that she has been staying in multiple homes due to transportation issues to and from various appointments. She denies any sick contacts. PAST MEDICAL HISTORY: Negative. PAST SURGICAL HISTORY: She has had 2 prior C-sections. OBSTETRIC HISTORY: She has a history of premature rupture of membranes at 27 weeks resulting in a premature delivery and an early delivery at 34 weeks due to preeclampsia or severe PIH. ALLERGIES: NO KNOWN DRUG ALLERGIES. MEDICATIONS: 1. vitamins. 2. Zofran. 3. [place], she reports she gets weekly shots. SOCIAL HISTORY: Denies drug, alcohol, or tobacco use. OBSTETRIC LABORATORY DATA: Unavailable at the time of dictation. REVIEW OF SYSTEMS: Per HPI. PHYSICAL EXAMINATION: VITAL SIGNS: Blood pressure 112/54, heart rate of 82, respiratory rate 20, saturating 100% on room air. GENERAL: She appears to be in no acute distress. She is alert, oriented, cooperative, and pleasant to interact with. HEAD: Normocephalic and atraumatic. LUNGS: Clear to auscultation bilaterally. HEART: Has a regular rate and rhythm. ABDOMEN: Gravid, soft, and nontender. The patient has some paravertebral tenderness in her upper lumbar, lower thoracic region, which duplicates some of her pain. She has no CVA tenderness. PELVIC: Vulva is without masses, lesions, or erythema. She does have quite a bit of vaginal discharge. The cervix is visibly closed. VPIII was collected at time of evaluation. On digital exam, cervix is closed and thick. heart tracing shows the fetus with a baseline in the 130s with moderate long-term variability, positive 15 x 15 accelerations, no decelerations. Tocometer shows some irritability, but no contraction pattern. LABORATORY DATA: Urinalysis shows urine with 48 ketones, negative nitrites, 25 leukocyte esterase, negative white blood cells, negative squamous cells, negative bacteria. VPIII shows negative findings for Trichomonas, positive for Gardnerella and [place]. ASSESSMENT AND PLAN: The patient is a 24-year-old female with an intrauterine at 33 weeks, presenting with multiple symptoms. The patient has been given a p.o. challenge here with a liter of water and 2 containers of apple juice. The patient has been able to keep most of that down and has been able to consume most of that without any vomiting. Given the patient's multiple symptoms, the patient has been tested for COVID-19. The patient has no indication for remaining hospitalized. We have shared our concerns and have highly recommended that she remain self quarantined in her home with use of a mask and that we will be notifying her when these results become available in the next 24 to 48 hours. Fetus has a category 1 tracing and a reactive NST. Job ID: [id number]
== END 2019-11-26 15:14 | disposition home health service (06) ==
LOC: ERS 11:46 → L&D/OP 11:49
PROVIDERS: ATTEND Family Medicine
DX: O99.89 Other specified diseases and conditions complicating pregnancy, childbirth and the puerperium (principal); R51 Headache; R05 Cough; M54.9 Dorsalgia, unspecified; O21.2 Late vomiting of pregnancy; O98.813 Other maternal infectious and parasitic diseases complicating pregnancy, third trimester; B37.3 Candidiasis of vulva and vagina; O23.593 Infection of other part of genital tract in pregnancy, third trimester; B96.89 Other specified bacterial agents as the cause of diseases classified elsewhere; O34.219 Maternal care for unspecified type scar from previous cesarean delivery; O09.213 Supervision of pregnancy with history of pre-term labor, third trimester; Z3A.33 33 weeks gestation of pregnancy; Z20.828 Contact with and (suspected) exposure to other viral communicable diseases
CPT/HCPCS: 81001; 87480; 87510; 87635; 87660; 99285; U0002

== ENCOUNTER 2019-12-20 09:37 | Day surgery (SDC) | payer OTHER ==
[2019-12-20 10:07] VITALS: BMI 28.5
[2019-12-20 10:15] LABS: Amnisure Test No Membranes Rupture (No Rupture)
[2019-12-20 10:16] LABS: Amnisure Internal Control QC ACCEPTABLE (ACCEPTABLE)
[2019-12-20] MEDS ORDERED: Butorphanol Tartrate 1 MG/ML VIAL SLOW IVP PRN (10:48)
[2019-12-20] MEDS ORDERED: hydrALAZINE 20 MG/ML VIAL SLOW IVP PRN (10:48)
--- NOTE | 2019-12-20 10:52 | PDOC.LDHP ---
Labor and Delivery H&P HPI: SEE handwritten H&P. Seen at 1052: Patient with CC: CTX at 36 weeks 4 days. HX CS x2 Sees Dr Cope who is away for the day ROS: Possible LOF yesterday PM Vitals WNL A/P: 36 weeks 4 days, CTX. CX 1cm. No gross evidence LOF. was negative. Plan: 1. labor obs due to CS HX 2. [facility] as under 36 weeks 6 days 3. pain meds 4 Hydarte FULL H&P in handwritten note Allergies/Adverse Reactions: Allergies Allergy/AdvReac Type Severity Reaction Status Date / Time No Known Allergies Allergy Verified 12/20/19 10:03
[2019-12-20] MEDS ORDERED: Lactated Ringer's 1,000 ML IV SCH (11:00)
[2019-12-20] MEDS ORDERED: Betamet Acet/Betamet Na Ph 30 MG/5 ML VIAL IM SCH (11:00)
--- NOTE | 2019-12-20 15:53 | PDOC.EVN ---
Event Note - Event Note Event Note: POST DC NOTE While I was attending to another patient, I was aware that this patient did not make CX change and felt better. I saw her at bedside again and cleared DC to home with Follow up celestone tomorrow
== END 2019-12-20 13:50 | disposition home or self-care (01) ==
LOC: L&D/OP 09:37
PROVIDERS: ATTEND Family Medicine
DX: O47.03 False labor before 37 completed weeks of gestation, third trimester (principal); O34.219 Maternal care for unspecified type scar from previous cesarean delivery; Z3A.36 36 weeks gestation of pregnancy
CPT/HCPCS: 84112; 96360; 96361; 96372; 96375; 99283; J0595; J0702

== ENCOUNTER 2019-12-26 22:20 | Day surgery (SDC) | payer OTHER ==
[2019-12-26 22:55] VITALS: BMI 29.2
[2019-12-26] MEDS ORDERED: hydrALAZINE 20 MG/ML VIAL SLOW IVP PRN (23:51)
--- NOTE | 2019-12-27 00:02 | PDOC.FPROB ---
FMR OB H&P: HPI - History of Present Illness Chief Complaint: Low back pain, leg pain Indentification: 24 year old at 37.3 wks History of Present Illness: 24 year old at 37.3 wks presents with right sided back and leg pain. Patient states the pain has been ongoing for the last several days. She states it has become worse tonight. She endorses sharp pain in lower right side of back radiating down leg to calf. She endorses intermittent numbness and tingling. She states she was trying to manage the pain at home, but her mother requested she be seen. She has tried tylenol, ice, and heat with minimal relief. Patient denies loss of bowel or bladder function, perineal numbness, inability to ambulate. The pain is improved when laying on left side. Pain is worse with ambulation and when laying on right side. She endorses few contractions over last several days. She denies vaginal bleeding, vaginal discharge, LoF. She endorses good movement. Primary Care Physician: Anatoliy FMR OB H&P: Current - Care : 3 Para: 1102 Gestational age: 37.3 wks Due date: 01/13/2020 FMR OB H&P: History - Past Medical History PMH: Denies significant PMH - OB History OB History: Hx Pre-E in past Hx PTL w/ PTD via C/S at 27 wks for breech presentation C/S x2 - MATERNAL CHILD NURSE History MATERNAL CHILD NURSE History: Denies STD's - Surgical History Sx History: C/S x2 - Social History Social History: Denies tobacco, alcohol, or drug use FMR OB H&P: Medications - Current Home Medications: Medication Instructions Recorded Confirmed Type Ondansetron [Zofran ODT] 4 mg PO Q6HR PRN 06/07/19 12/26/19 History Vits96/Iron Fum/Folic 1 capsule PO DAILY 11/08/19 12/26/19 History [ Tablet] Allergies/Adverse Reactions: Allergies Allergy/AdvReac Type Severity Reaction Status Date / Time No Known Allergies Allergy Verified 12/20/19 10:03 FMR OB H&P: ROS - Review of Systems General: denies: fever/chills, weight/appetite/sleep changes Eyes: denies: vision changes, scotomas ENT: denies: nasal congestion, rhinorrhea, sore throat Cardiovascular: denies: chest pain, palpitation, edema Respiratory: denies: cough, congestion, shortness of breath Gastrointestinal: denies: abdominal pain, nausea, vomiting Genitourinary (Female): reports: contractions. denies: dysuria, vaginal discharge, vaginal pain, vaginal bleeding, vaginal pressure Musculoskeletal: reports: pain, stiffness, tenderness. denies: redness, swelling Neurologic: reports: numbness. denies: syncope, seizures, weakness, headache Integumentary: denies: itching, rash Psychological: denies: depression, anxiety FMR OB H&P: Vital Signs - Maternal Vital signs: BP <140/90 Afebrile See Centricity note for specific vitals. Vitals reviewed and WNL. - Heart Tones Baseline: 140 Variability: moderate Acceleration: present Deceleration: absent Kyle contractions every: Few FMR OB H&P: Physical Exam - Physical Exam General: NAD, awake, alert and oriented HEENT: EOMI, MMM, grossly normal vision, grossly normal hearing Heart: RRR, pulses present General: CTAB, no respiratory distress Abdomen: soft, gravid, non-tender Musculoskeletal: pulses present, FROM in all four extremities Neurological: no clonus, no tremor Skin: no rash, capillary refill <2 seconds Lymphatic: no unusual bruising or bleeding, no purpura Psychiatric: intact recent and remote memory, good judgement and insight, normal mood and affect - Pelvic Exam SVE: 1.5/50/high FMR OB H&P: A/P - Problem List (1) Term Status: Acute Code(s): Z34.90 - ENCNTR FOR SUPRVSN OF NORMAL , UNSP, UNSP TRIMESTER (2) History of pre-eclampsia Status: Acute Code(s): Z87.59 - PERSONAL HISTORY OF COMP OF PREG, CHLDBRTH AND THE PUERP (3) Back pain affecting Status: Acute Code(s): O99.89 - OTH DISEASES AND CONDITIONS COMPL PREG/ CHLDBRTH; M54.9 - DORSALGIA, UNSPECIFIED (4) History of delivery Status: Acute Code(s): Z98.891 - HISTORY OF UTERINE SCAR FROM PREVIOUS SURGERY Disposition: 24 year old at 37.3 wks Term IUP - NST reactive - Few to no contractions on monitor - SVE 1.5/50/-3; similar exam to last week when patient presented to L&D - No evidence of labor MSK low back and leg pain - Symptoms consistent with sciatica and MSK pain - Pain reproducible to palpation - OMT performed to include pelvic decompression and innominate rotation - Advised patient to continue use of ice, heating pad, tylenol. Advised that she could take tylenol 1000 mg q6h as needed - Patient able to ambulate - Encouraged daily stretching Hx pre-E - Patient not on ASA therapy during Dispo: D/c home with strict return precautions. No red flag symptoms. No evidence of labor. Counseled on course of MSK pain . Patient has follow up with Dr. Cope early next week. Discussion: Date/Time: 12/26/19 8830 This H&P was discussed with Dr. Grady who agrees with the above documentation and plan. Signature: Sana Chinchilla, PGY-3 Addendum - Attending - Attending Attestation Date/Time: 12/27/19 9752 I personally evaluated the patient and discussed the management with Dr. Chinchilla. I agree with the History, Examination, Assessment and Plan documented above.
== END 2019-12-26 23:57 | disposition home or self-care (01) ==
LOC: L&D/OP 22:20
PROVIDERS: ATTEND Family Medicine
DX: O99.89 Other specified diseases and conditions complicating pregnancy, childbirth and the puerperium (principal); M54.5 Low back pain; M79.606 Pain in leg, unspecified; O34.219 Maternal care for unspecified type scar from previous cesarean delivery; O09.213 Supervision of pregnancy with history of pre-term labor, third trimester; Z3A.37 37 weeks gestation of pregnancy; Z79.899 Other long term (current) drug therapy

== ENCOUNTER 2020-11-20 12:04 | Emergency (ER) | payer OTHER ==
[2020-11-20 12:38] LABS: #Basophils 0.1 thou/uL (0.0-0.2); #Lymphocytes 2.1 thou/uL (1.20-3.40); #Monocytes 0.6 thou/uL (0.11-0.59); #Neutrophils 5.3 thou/uL (1.40-6.50); %Basophils 1.3 % (0.0-1.0); %Eosinophils 0.4 % (0.0-10.0); %Lymphocytes 25.3 % (21.0-51.0); %Monocytes 7.8 % (0.0-10.0); %Neutrophils 65.1 % (42.0-75.0); Hemoglobin 12.2 g/dL (12.0-16.0); Mean Corpuscular HGB CONC 31.5 g/dL (32.0-36.0); Mean Corpuscular Hemoglobin 25.6 pg (27.0-31.0); Mean Corpuscular Volume 81.4 fL (78.0-98.0); Platelet Count 344 thou/uL (130-400); RBC Distribution Width 14.9 % (11.5-14.5); Red Blood Cell (RBC) Count 4.75 mill/uL (4.20-5.40); White Blood Cell (WBC) Count 8.2 thou/uL (4.8-10.8)
[2020-11-20 12:48] LABS: BHCG - Serum Negative (NEGATIVE); Pregs Control Background? CLEAR/WHITE (CLR/WHITE); Pregs Control Bar Appear? YES (CONTROL BAR)
[2020-11-20] MEDS ORDERED: Acetaminophen 500 MG TAB ONE (12:50)
[2020-11-20 13:31] LABS: ALT (SGPT) 11 U/L (8-55); AST (SGOT) 25 U/L (5-34); Albumin 4.7 g/dL (3.5-5.0); Alkaline Phosphatase 82 U/L (40-110); Anion Gap 17 mmol/L (10-20); BUN (Urea Nitrogen) 9 mg/dL (7.0-18.7); Bilirubin, Total 0.4 mg/dL (0.2-1.2); Calc. Creatinine Clearance 0 mL/min (70-130); Calcium 9.9 mg/dL (7.8-10.44); Carbon Dioxide 20 mmol/L (22-29); Chloride 108 mmol/L (98-107); Globulin 3.5 g/dL (2.4-3.5); Glucose 88 mg/dL (70-105); Potassium 3.9 mmol/L (3.5-5.1); Protein, Total 8.2 g/dL (6.0-8.3); Sodium 141 mmol/L (136-145)
== END 2020-11-20 13:54 | disposition home or self-care (01) ==
LOC: ERS 12:04
DX: R07.89 Other chest pain (principal); I10 Essential (primary) hypertension; Z87.891 Personal history of nicotine dependence
CPT/HCPCS: 71045; 80053; 84484; 84703; 85025; 93005

== ENCOUNTER 2022-03-26 23:24 | Observation (INO) | payer OTHER ==
[2022-03-27] MEDS ORDERED: Acetaminophen 500 MG TAB ONE (01:12)
[2022-03-27] MEDS ORDERED: Ondansetron ODT 4 MG TAB ONE (01:12)
[2022-03-27 01:19] LABS: Hemoglobin 12.5 g/dL (12.0-16.0); Mean Corpuscular HGB CONC 34.1 g/dL (32.0-36.0); Mean Corpuscular Hemoglobin 30.3 pg (27.0-31.0); Mean Corpuscular Volume 88.8 fL (78.0-98.0); Mean Platelet Volume 8.1 fL (7.4-10.4); Platelet Count 230 thou/uL (130-400); RBC Distribution Width 13.4 % (11.5-14.5); Red Blood Cell (RBC) Count 4.13 mill/uL (4.20-5.40); White Blood Cell (WBC) Count 5.3 thou/uL (4.8-10.8)
[2022-03-27 02:01] LABS: Bacteria/HPF None Seen HPF (None Seen); Bilirubin Negative (Negative); Blood, Urine 3+ (Negative); Clarity Clear (Clear); Glucose, Urine (Dipstick) Normal (Negative); Ketone, Urine 20 mg/dL (Negative); Leukocyte Negative Leu/uL (Negative); Mucous/LPF 4+ LPF (<2+); Nitrite Negative (Negative); Protein, Urine (Dipstick) 50 mg/dL (Neg-Trace); RBC/HPF 0-3 HPF (0-3); Specific Gravity, Urine 1.041 (1.002-1.036); Urobilinogen 3 mg/dL (Less than 2)
[2022-03-27 02:23] LABS: Band 1 % (5-11); Lymphocytes 11 % (21-51); MDiff Complete? YES; Monocytes 12 % (0-10); Neutrophil 76 % (42-75); Platelet Morphology Comment Appears Adequate; RBC Morphology Normal
[2022-03-27 04:13] LABS: ALT (SGPT) 14 U/L (8-55); AST (SGOT) 22 U/L (5-34); Albumin 3.9 g/dL (3.5-5.0); Alkaline Phosphatase 66 U/L (40-110); Anion Gap 15 mmol/L (10-20); BUN (Urea Nitrogen) 9 mg/dL (7.0-18.7); Bilirubin, Total 0.4 mg/dL (0.2-1.2); Calc. Creatinine Clearance 0 mL/min (70-130); Calcium 8.5 mg/dL (7.8-10.44); Carbon Dioxide 18 mmol/L (22-29); Chloride 107 mmol/L (98-107); Estimated GFR 107; Glucose 83 mg/dL (70-105); Potassium 3.2 mmol/L (3.5-5.1); Protein, Total 6.9 g/dL (6.0-8.3); Sodium 137 mmol/L (136-145)
[2022-03-27] MEDS ORDERED: Acetaminophen 325 MG TAB PO PRN (04:15)
[2022-03-27] MEDS ORDERED: Ondansetron PF 4 MG/2 ML Vial IVP PRN (04:15)
[2022-03-27] MEDS ORDERED: Ondansetron ODT 4 MG TAB SL PRN (04:15)
[2022-03-27 04:54] LABS: SARS-CoV-2 NAA Rapid Test DETECTED (NotDetected)
[2022-03-27 06:18] VITALS: BMI 25.6
[2022-03-27] MEDS ORDERED: Potassium Chloride 20 MEQ TAB PO SCH (08:45)
[2022-03-27 13:31] LABS: Chlamydia by PCR Not Detected (NotDetected); GC by PCR Not Detected (NotDetected)
[2022-03-27 17:04] VITALS: BP 124/84; TEMP 99.4
== END 2022-03-27 17:30 | disposition home or self-care (01) ==
LOC: ERS 23:24 → 2SW 03-27 03:57
PROVIDERS: ADMIT Family Medicine; ATTEND Family Medicine
DX: I51.1 Rupture of chordae tendineae, not elsewhere classified (principal); I34.0 Nonrheumatic mitral (valve) insufficiency; I10 Essential (primary) hypertension; U07.1 COVID-19; N93.9 Abnormal uterine and vaginal bleeding, unspecified; F17.210 Nicotine dependence, cigarettes, uncomplicated
CPT/HCPCS: 36415; 71045; 76856; 80053; 81003; 81015; 84443; 84702; 85025; 86850; 86870; 86900; 86901; 87040; 87491; 87591; 93005; 93010; 93306; 94760; G0378; Q0162; U0002

== ENCOUNTER 2022-05-18 18:35 | Emergency (ER) | payer OTHER ==
[2022-05-18 20:13] LABS: Bilirubin Negative (Negative); Blood, Urine Negative (Negative); Clarity Clear (Clear); Glucose, Urine (Dipstick) Normal (Negative); Ketone, Urine Negative (Negative); Leukocyte Negative Leu/uL (Negative); Nitrite Negative (Negative); Protein, Urine (Dipstick) 10 mg/dL (Neg-Trace); Specific Gravity, Urine 1.037 (1.002-1.036); pH, Urine 5.5 (5.0-9.0)
[2022-05-18 20:15] LABS: Pregnancy Test - Urine (BHCG) Negative (Negative); Pregu Control Background? CLEAR/WHITE (CLR/WHITE); Pregu Control Bar Appear? YES (CONTROL BAR); Specific Gravity 1.037 (1.002-1.036)
== END 2022-05-18 21:37 | disposition home or self-care (01) ==
LOC: ERS 18:35
DX: R11.10 Vomiting, unspecified (principal); R05.9 Cough, unspecified; I10 Essential (primary) hypertension; F17.210 Nicotine dependence, cigarettes, uncomplicated
CPT/HCPCS: 71045; 81003; 81025

== ENCOUNTER 2022-11-23 16:44 | Emergency (ER) | payer OTHER ==
[2022-11-23 17:57] LABS: #Lymphocytes 2.2 thou/uL (1.20-3.40); #Monocytes 0.6 thou/uL (0.11-0.59); #Neutrophils 6.7 thou/uL (1.40-6.50); %Basophils 0.2 % (0.0-1.0); %Eosinophils 0.5 % (0.0-10.0); %Lymphocytes 22.6 % (21.0-51.0); %Monocytes 6.1 % (0.0-10.0); %Neutrophils 70.6 % (42.0-75.0); Hemoglobin 12.1 g/dL (12.0-16.0); Mean Corpuscular HGB CONC 30.4 g/dL (32.0-36.0); Mean Corpuscular Hemoglobin 27.4 pg (27.0-31.0); Mean Corpuscular Volume 90.1 fl (78.0-98.0); Mean Platelet Volume 8.1 fL (7.4-10.4); Platelet Count 266 10x3/uL (130-400); RBC Distribution Width 13.1 % (11.5-14.5); Red Blood Cell (RBC) Count 4.39 mill/uL (4.20-5.40); White Blood Cell (WBC) Count 9.5 10x3/uL (4.8-10.8)
[2022-11-23 18:19] LABS: ALT (SGPT) 13 U/L (8-55); AST (SGOT) 17 U/L (5-34); Alkaline Phosphatase 67 U/L (40-110); Anion Gap 10 mmol/L (10-20); BUN (Urea Nitrogen) 9 mg/dL (7.0-18.7); Bilirubin, Total 0.2 mg/dL (0.2-1.2); Calc. Creatinine Clearance 0 mL/min (70-130); Calcium 9.3 mg/dL (7.8-10.44); Carbon Dioxide 24 mmol/L (22-29); Chloride 107 mmol/L (98-107); Estimated GFR 113; Globulin 3.2 g/dL (2.4-3.5); Glucose 98 mg/dL (70-105); Potassium 3.9 mmol/L (3.5-5.1); Protein, Total 7.2 g/dL (6.0-8.3); Sodium 137 mmol/L (136-145)
[2022-11-23] MEDS ORDERED: Ondansetron ODT 4 MG TAB ONE (19:10)
[2022-11-23 20:26] LABS: Bacteria/HPF None Seen HPF (None Seen); Bilirubin Negative (Negative); Blood, Urine 1+ (Negative); Clarity Turbid (Clear); Glucose, Urine (Dipstick) Normal (Negative); Ketone, Urine Negative (Negative); Leukocyte Negative Leu/uL (Negative); Nitrite Negative (Negative); Protein, Urine (Dipstick) Negative (Neg-Trace); RBC/HPF 0-3 HPF (0-3); Specific Gravity, Urine 1.018 (1.002-1.036); Squamous Epithelial 0-3 HPF (0-3); Urobilinogen Normal mg/dL (Less than 2); WBC/HPF 0-3 HPF (0-3); pH, Urine 7.5 (5.0-9.0)
== END 2022-11-23 21:16 | disposition short-term general hospital (02) ==
LOC: ERS 16:44
DX: O00.90 Unspecified ectopic pregnancy without intrauterine pregnancy (principal); I10 Essential (primary) hypertension
CPT/HCPCS: 36415; 76856; 80053; 81003; 81015; 84702; 85025; 86850; 86900; 86901; 96374; Q0162

== ENCOUNTER 2022-11-25 14:24 | Emergency (ER) | payer OTHER ==
[2022-11-25 15:28] LABS: #Basophils 0.1 thou/uL (0.0-0.2); #Lymphocytes 2.4 thou/uL (1.20-3.40); #Monocytes 0.8 thou/uL (0.11-0.59); #Neutrophils 6.3 thou/uL (1.40-6.50); %Basophils 0.9 % (0.0-1.0); %Eosinophils 0.3 % (0.0-10.0); %Lymphocytes 24.6 % (21.0-51.0); %Neutrophils 66.2 % (42.0-75.0); Hemoglobin 14.3 g/dL (12.0-16.0); Mean Corpuscular HGB CONC 33.4 g/dL (32.0-36.0); Mean Corpuscular Hemoglobin 30.2 pg (27.0-31.0); Mean Corpuscular Volume 90.5 fl (78.0-98.0); Mean Platelet Volume 8.4 fL (7.4-10.4); Platelet Count 278 10x3/uL (130-400); RBC Distribution Width 13.2 % (11.5-14.5); Red Blood Cell (RBC) Count 4.73 mill/uL (4.20-5.40); White Blood Cell (WBC) Count 9.6 10x3/uL (4.8-10.8)
[2022-11-25] MEDS ORDERED: Acetaminophen 500 MG TAB ONE (15:29)
[2022-11-25 15:31] LABS: Bilirubin Negative (Negative); Blood, Urine Negative (Negative); Clarity Clear (Clear); Glucose, Urine (Dipstick) Normal (Negative); Ketone, Urine Negative (Negative); Leukocyte Negative Leu/uL (Negative); Nitrite Negative (Negative); Protein, Urine (Dipstick) Negative (Neg-Trace); Specific Gravity, Urine 1.007 (1.002-1.036); Urobilinogen Normal mg/dL (Less than 2)
[2022-11-25 15:53] LABS: ALT (SGPT) 53 U/L (8-55); AST (SGOT) 41 U/L (5-34); Albumin 4.7 g/dL (3.5-5.0); Alkaline Phosphatase 77 U/L (40-110); Anion Gap 14 mmol/L (10-20); BUN (Urea Nitrogen) 10 mg/dL (7.0-18.7); Bilirubin, Total 0.5 mg/dL (0.2-1.2); Calc. Creatinine Clearance 0 mL/min (70-130); Calcium 10.2 mg/dL (7.8-10.44); Carbon Dioxide 21 mmol/L (22-29); Chloride 105 mmol/L (98-107); Estimated GFR 106; Globulin 3.9 g/dL (2.4-3.5); Glucose 81 mg/dL (70-105); Potassium 3.4 mmol/L (3.5-5.1); Protein, Total 8.6 g/dL (6.0-8.3); Sodium 137 mmol/L (136-145)
[2022-11-25] MEDS ORDERED: Ondansetron PF 4 MG/2 ML Vial ONE (16:56)
== END 2022-11-25 19:18 | disposition home or self-care (01) ==
LOC: ERS 14:24
DX: O00.90 Unspecified ectopic pregnancy without intrauterine pregnancy (principal); I10 Essential (primary) hypertension
CPT/HCPCS: 36415; 76856; 80053; 81003; 84702; 85025; 96374; J2405

== ENCOUNTER 2023-07-20 | Emergency (ER) | payer OTHER ==
[2023-07-20] MEDS ORDERED: Ketorolac Tromethamine 30 MG/ML VIAL ONE (00:21)
[2023-07-20] MEDS ORDERED: HYDROcodone/Acetaminophen 5/325 mg Tablet ONE (00:22)
== END 2023-07-20 00:42 | disposition home or self-care (01) ==
LOC: ERS
DX: K04.7 Periapical abscess without sinus (principal); K02.9 Dental caries, unspecified; I10 Essential (primary) hypertension
CPT/HCPCS: J1885

== ENCOUNTER 2023-07-21 10:04 | Emergency (ER) | payer OTHER ==
[2023-07-21] MEDS ORDERED: Acetaminophen 500 MG TAB ONE (11:11)
[2023-07-21] MEDS ORDERED: Ketorolac Tromethamine 30 MG/ML VIAL ONE (11:11)
[2023-07-21 11:30] LABS: #Monocytes 1.1 thou/uL (0.11-0.59); #Neutrophils 10.4 thou/uL (1.40-6.50); %Basophils 0.1 % (0.0-1.0); %Eosinophils 0.1 % (0.0-10.0); %Lymphocytes 13.8 % (21.0-51.0); %Monocytes 8.4 % (0.0-10.0); %Neutrophils 77.2 % (42.0-75.0); Hematocrit 33.5 % (36.0-47.0); Hemoglobin 10.7 g/dL (12.0-16.0); Mean Corpuscular HGB CONC 31.9 g/dL (32.0-36.0); Mean Corpuscular Hemoglobin 26.4 pg (27.0-31.0); Mean Corpuscular Volume 82.7 fl (78.0-98.0); Mean Platelet Volume 10.3 fL (7.4-10.4); Platelet Count 389 10x3/uL (130-400); RBC Distribution Width 15.1 % (11.5-14.5); Red Blood Cell (RBC) Count 4.05 mill/uL (4.20-5.40); White Blood Cell (WBC) Count 13.5 10x3/uL (4.8-10.8)
[2023-07-21 11:43] LABS: BHCG - Serum Negative (NEGATIVE); Pregs Control Background? CLEAR/WHITE (CLR/WHITE); Pregs Control Bar Appear? YES (CONTROL BAR)
[2023-07-21 11:48] LABS: ALT (SGPT) 16 U/L (8-55); AST (SGOT) 20 U/L (5-34); Albumin 4.4 g/dL (3.5-5.0); Alkaline Phosphatase 92 U/L (40-110); Anion Gap 13 mmol/L (10-20); BUN (Urea Nitrogen) 6 mg/dL (7.0-18.7); Bilirubin, Total 0.6 mg/dL (0.2-1.2); Calc. Creatinine Clearance 0 mL/min (70-130); Calcium 9.7 mg/dL (7.8-10.44); Carbon Dioxide 26 mmol/L (22-29); Chloride 103 mmol/L (98-107); Estimated GFR 106; Globulin 3.8 g/dL (2.4-3.5); Glucose 99 mg/dL (70-105); Potassium 3.5 mmol/L (3.5-5.1); Protein, Total 8.2 g/dL (6.0-8.3); Sodium 138 mmol/L (136-145)
[2023-07-21] MEDS ORDERED: Iopamidol-370 76% 500 ML MDV (1 ML CHARGE) ONE (11:58)
[2023-07-21] MEDS ORDERED: Amoxicillin/Potassium Clav 875 MG TAB ONE (13:10)
[2023-07-21] MEDS ORDERED: Dexamethasone 10 MG/ML VIAL ONE (14:06)
== END 2023-07-21 14:19 | disposition home or self-care (01) ==
LOC: ERS 10:04
DX: K04.7 Periapical abscess without sinus (principal); K02.9 Dental caries, unspecified; I10 Essential (primary) hypertension; F17.210 Nicotine dependence, cigarettes, uncomplicated
CPT/HCPCS: 70487; 80053; 84703; 85025; 96372; 96374; 99282; J1100; J1885; Q9967

== ENCOUNTER 2023-10-21 15:20 | Emergency (ER) | payer OTHER, SELFPAY ==
[2023-10-21] MEDS ORDERED: Ketorolac Tromethamine 30 MG (1 mL) VIAL ONE (15:46)
== END 2023-10-21 16:17 | disposition home or self-care (01) ==
LOC: ERS 15:20
DX: K04.7 Periapical abscess without sinus (principal); I10 Essential (primary) hypertension
CPT/HCPCS: 96372; 99282; J1885

== ENCOUNTER 2024-07-27 08:36 | Emergency (ER) | payer OTHER, SELFPAY ==
[2024-07-27] MEDS ORDERED: HYDROcodone/Acetaminophen 10/325 mg Tablet ONE (08:59)
== END 2024-07-27 09:23 | disposition home or self-care (01) ==
LOC: ERS 08:36
DX: K08.89 Other specified disorders of teeth and supporting structures (principal); I10 Essential (primary) hypertension
CPT/HCPCS: 99282

== ENCOUNTER 2025-03-15 05:28 | Emergency (ER) | payer SELFPAY ==
[2025-03-15] MEDS ORDERED: Ketorolac Tromethamine 30 MG (1 mL) VIAL ONE (06:19)
[2025-03-15] MEDS ORDERED: Amoxicillin/Potassium Clav 875 MG TAB ONE (06:19)
== END 2025-03-15 06:35 | disposition home or self-care (01) ==
LOC: ERS 05:28
DX: K08.89 Other specified disorders of teeth and supporting structures (principal)
CPT/HCPCS: 96372; 99282; J1885

== ENCOUNTER 2025-06-23 17:51 | Emergency (ER) | payer SELFPAY ==
[2025-06-23] MEDS ORDERED: Acetaminophen 500 MG TAB ONE (18:40)
== END 2025-06-23 18:54 | disposition home or self-care (01) ==
LOC: ERS 17:51
DX: K04.7 Periapical abscess without sinus (principal); K08.89 Other specified disorders of teeth and supporting structures; Z75.3 Unavailability and inaccessibility of health-care facilities
CPT/HCPCS: 96372; 99282